=== PATIENT | female | born 1965 | race Two or more races ===

== ENCOUNTER 2017-08-12 13:50 | Emergency (ER) | payer MEDICAID, MEDICARE ==
[~2017-08-12] VITALS: Ht 170.2 cm; Wt 55.0 kg
[~2017-08-12 13:50] MED LIST: ATOR80TA PO; BENA20TA3 PO; BUPR-102 PO; CLOP75TA33 PO; LEVO75TA PO; METF500T4 PO; RISP1TAB26 PO; RISP2TAB22 PO
[2017-08-12 13:53] VITALS: BP 111/63
== END 2017-08-12 14:13 | disposition left against medical advice (07) ==
LOC: ER 13:50
DX: Z04.8 Encounter for examination and observation for other specified reasons (principal)
CPT/HCPCS: 99283

== ENCOUNTER 2018-11-05 08:55 | Emergency (ER) | payer MEDICARE, MEDICAID ==
[~2018-11-05] VITALS: Ht 175.3 cm; Wt 55.0 kg
[~2018-11-05 08:55] MED LIST changes: +BENA20TA10 PO; -BENA20TA3 PO; +METF-414 PO; -METF500T4 PO
[2018-11-05 09:44] LABS: BASOPHILS % 0.5 % (0.0-2.0); EOSINOPHILS % 1.8 % (0.0-5.0); HEMATOCRIT. 35.5 % (36.0-48.0); HEMOGLOBIN. 11.9 g/dL (12.0-16.0); LYMPHOCYTES % 30.6 % (20.0-50.0); MEAN CORPUSCULAR HEMOGLOBIN 30.4 pg (28.0-32.0); MEAN CORPUSCULAR VOLUME 90.3 fL (81.0-99.0); MEAN PLATELET VOLUME 7.7 fl (7.4-10.4); MONOCYTES % 6.2 % (2.0-8.0); NEUTROPHILS % 60.9 % (40.0-76.0); PLATELET 231 x1000/uL (130-400); RED BLOOD CELL COUNT 3.93 mill/uL (4.2-5.4); RED CELL DISTRIBUTION WIDTH 13.3 % (11.6-14.6)
[2018-11-05 09:50] LABS: CHLORIDE 106 mEq/L (98-107)
[2018-11-05 10:01] LABS: ETHANOL BLOOD < 10 mg/dL
[2018-11-05 10:02] LABS: CARBAMAZEPINE < 0.5 ug/mL (4-12)
[2018-11-05 10:05] LABS: PHENOBARBITAL < 2.1 ug/mL (15.0-40.0)
[2018-11-05 10:39] LABS: CLARITY URINE CLEAR (CLEAR); COLOR URINE YELLOW (YELLOW); KETONES URINE NEGATIVE (NEGATIVE); LEUKOCYTE ESTERASE URINE NEGATIVE (NEGATIVE); NITRITE URINE NEGATIVE (NEGATIVE); OCCULT BLOOD URINE NEGATIVE (NEGATIVE); PH URINE 7.5 (4.5-8.0); PROTEIN URINE NEGATIVE (NEGATIVE); SPECIFIC GRAVITY URINE 1.015 (1.005-1.030); UROBILINOGEN URINE 0.2 E.U./dL (0.2-1.0)
[2018-11-05 11:29] LABS: *AMPHETAMINES SCREEN URINE NEGATIVE (NEGATIVE); *BARBITURATES SCREEN URINE NEGATIVE (NEGATIVE); *BENZODIAZEPINES SCREEN URINE NEGATIVE (NEGATIVE); *COCAINE SCREEN URINE NEGATIVE (NEGATIVE); CANNABINOID URINE SCREEN NEGATIVE (NEGATIVE); METHADONE URINE SCREEN NEGATIVE (NEGATIVE); OPIATES URINE SCREEN NEGATIVE (NEGATIVE); PHENCYCLIDINE URINE SCREEN NEGATIVE (NEGATIVE)
[2018-11-05 12:30] VITALS: BP 138/68
== END 2018-11-05 13:46 | disposition home or self-care (01) ==
LOC: ER 08:55
DX: R56.9 Unspecified convulsions (principal); E11.9 Type 2 diabetes mellitus without complications; I10 Essential (primary) hypertension; Z86.73 Personal history of transient ischemic attack (TIA), and cerebral infarction without residual deficits; Z79.899 Other long term (current) drug therapy
CPT/HCPCS: 36415; 70450; 80053; 80156; 80165; 80184; 80185; 80305; 80320; 81003; 82962; 85025; 99284; P9612; G0480

== ENCOUNTER 2019-04-12 13:14 | Inpatient (IN) | payer MEDICARE, MEDICAID ==
[~2019-04-12] VITALS: Ht 167.6 cm; Wt 59.0 kg
[2019-04-12] MEDS ORDERED: SODIUM CHLORIDE 0.9% 1,000 ML IV ONE (14:03)
[2019-04-12 14:47] LABS: BASOPHILS % 0.2 % (0.0-2.0); EOSINOPHILS % 0.1 % (0.0-5.0); HEMATOCRIT. 33.2 % (36.0-48.0); HEMOGLOBIN. 11.4 g/dL (12.0-16.0); MEAN CORPUSCULAR HEMOGLOBIN 31.2 pg (28.0-32.0); MEAN CORPUSCULAR VOLUME 91.1 fL (81.0-99.0); MEAN PLATELET VOLUME 7.5 fl (7.4-10.4); MONOCYTES % 8.1 % (2.0-8.0); NEUTROPHILS % 78.6 % (40.0-76.0); PLATELET 262 x1000/uL (130-400); RED BLOOD CELL COUNT 3.64 mill/uL (4.2-5.4)
[2019-04-12 14:54] LABS: CHLORIDE 107 mEq/L (98-107)
[2019-04-12 15:00] LABS: ETHANOL BLOOD < 10 mg/dL
[2019-04-12 19:03] LABS: CLARITY URINE CLEAR (CLEAR); COLOR URINE YELLOW (YELLOW); KETONES URINE NEGATIVE (NEGATIVE); LEUKOCYTE ESTERASE URINE 2+ (NEGATIVE); NITRITE URINE NEGATIVE (NEGATIVE); OCCULT BLOOD URINE 2+ (NEGATIVE); PROTEIN URINE NEGATIVE (NEGATIVE); SPECIFIC GRAVITY URINE 1.019 (1.005-1.030)
[2019-04-12 19:15] LABS: *AMPHETAMINES SCREEN URINE NEGATIVE (NEGATIVE); *BARBITURATES SCREEN URINE NEGATIVE (NEGATIVE); *BENZODIAZEPINES SCREEN URINE NEGATIVE (NEGATIVE); *COCAINE SCREEN URINE NEGATIVE (NEGATIVE); METHADONE URINE SCREEN NEGATIVE (NEGATIVE); OPIATES URINE SCREEN NEGATIVE (NEGATIVE)
[2019-04-12 19:16] LABS: CANNABINOID URINE SCREEN NEGATIVE (NEGATIVE); PHENCYCLIDINE URINE SCREEN NEGATIVE (NEGATIVE)
[2019-04-12] MEDS ORDERED: NA PHOS,M-B/NA PHOS,DI-BA ENEMA 118ML PR PRN (20:00)
[2019-04-12] MEDS ORDERED: ACETAMINOPHEN 325MG TABLET PO PRN (20:00)
[2019-04-12] MEDS ORDERED: GUAIFENESIN 200MG/10ML SUGAR FREE UDC PO PRN (20:00)
[2019-04-12] MEDS ORDERED: IPRATROPIUM/ALBUTEROL 0.5-3(2.5)MG/3ML NEB HHN PRN (20:00)
[2019-04-12] MEDS ORDERED: ONDANSETRON HCL 4MG/2ML INJ IV PRN (20:00)
[2019-04-12] MEDS ORDERED: MAGNESIUM/ALUMINUM HYDROXIDE/SIMETHICONE 30ML UDC PO PRN (20:00)
[2019-04-12] MEDS ORDERED: CLONIDINE 0.1MG TABLET PO PRN (20:00)
[2019-04-12] MEDS ORDERED: DOCUSATE SODIUM 100MG CAPSULE PO PRN (20:00)
[2019-04-12] MEDS ORDERED: HYDROCODONE/ACETAMINOPHEN 10/325MG TABLET PO PRN (20:00)
[2019-04-12] MEDS ORDERED: MORPHINE SULFATE 2 MG/ML CPJ (NOT FOR IM USE) IV PRN (20:00)
[2019-04-12] MEDS ORDERED: DEXTROSE 50% WATER 50ML SYRINGE IV PRN (20:15)
[2019-04-12 23:00] VITALS: BP 144/73
[2019-04-13 01:30] LABS: CREATINE KINASE MB FRACTION 4.9 ng/mL (0.5-3.6)
[2019-04-13] MEDS ORDERED: CEFTRIAXONE 1 G PREMIX 50 ML IV SCH (02:00)
[2019-04-13] MEDS: DEXT 5%/0.45% NACL 1000ML 1,000 ML IV SCH ×2 (07:04→18:46)
[2019-04-13] MEDS: SODIUM CHLORIDE 0.9% INJ 3ML FLUSH IVF SCH ×3 (07:20→22:21)
[2019-04-13] MEDS: BLOOD SUGAR DIAGNOSTIC STRIP TEST SCH ×4 (07:20→21:00)
[2019-04-13] MEDS: INSULIN LISPRO 100 UNITS/ML SUBCUT SCH ×4 (07:50→22:20)
[2019-04-13 07:56] LABS: BASOPHILS % 0.3 % (0.0-2.0); EOSINOPHILS % 1.4 % (0.0-5.0); HEMATOCRIT. 34.6 % (36.0-48.0); HEMOGLOBIN. 11.7 g/dL (12.0-16.0); LYMPHOCYTES % 21.8 % (20.0-50.0); MEAN CORPUSCULAR HEMOGLOBIN 30.7 pg (28.0-32.0); MEAN CORPUSCULAR VOLUME 90.7 fL (81.0-99.0); MEAN PLATELET VOLUME 7.9 fl (7.4-10.4); MONOCYTES % 7.9 % (2.0-8.0); NEUTROPHILS % 68.6 % (40.0-76.0); PLATELET 268 x1000/uL (130-400); RED BLOOD CELL COUNT 3.82 mill/uL (4.2-5.4); RED CELL DISTRIBUTION WIDTH 13.4 % (11.6-14.6)
[2019-04-13 08:00] VITALS: BP 113/68
[2019-04-13 09:13] LABS: CHLORIDE 107 mEq/L (98-107)
[2019-04-13 09:21] LABS: LDL CHOLESTEROL 71 mg/dL (5-100)
[2019-04-13 09:27] LABS: CREATINE KINASE 879 IU/L (26-192); HDL CHOLESTEROL 39 mg/dL (40-59)
[2019-04-13 09:29] LABS: CREATINE KINASE MB FRACTION 4.2 ng/mL (0.5-3.6)
[2019-04-13 09:37] LABS: T4 FREE 1.12 ng/dL (0.76-1.46)
[2019-04-13] MEDS: ENOXAPARIN 40MG/0.4ML SYR SUBCUT SCH (09:53)
[2019-04-13 12:00] VITALS: BP 130/59
[2019-04-13 16:00] VITALS: BP 137/70
[2019-04-13 16:48] LABS: T4 FREE 1.12 ng/dL (0.76-1.46)
[2019-04-13 17:06] LABS: FOLIC ACID (FOLATE) SERUM >20 ng/mL ng/mL (>5.38)
[2019-04-13 17:14] LABS: VITAMIN B12 SERUM 290 pg/mL (211-911)
[2019-04-13] MEDS: CLOPIDOGREL 75MG TABLET PO SCH (18:50)
[2019-04-13 20:00] VITALS: BP 144/87
[2019-04-13] MEDS: CARBAMAZEPINE 200MG TABLET PO SCH (22:19)
[2019-04-14] VITALS: BP 128/81
[2019-04-14 04:00] VITALS: BP 113/80
[2019-04-14] MEDS: DEXT 5%/0.45% NACL 1000ML 1,000 ML IV SCH ×2 (06:16→20:56)
[2019-04-14] MEDS: SODIUM CHLORIDE 0.9% INJ 3ML FLUSH IVF SCH ×3 (06:17→21:04)
[2019-04-14] MEDS: BLOOD SUGAR DIAGNOSTIC STRIP TEST SCH ×4 (06:26→20:55)
[2019-04-14 07:20] LABS: BASOPHILS % 0.3 % (0.0-2.0); EOSINOPHILS % 1.4 % (0.0-5.0); HEMATOCRIT. 34.6 % (36.0-48.0); HEMOGLOBIN. 11.4 g/dL (12.0-16.0); LYMPHOCYTES % 29.2 % (20.0-50.0); MEAN CORPUSCULAR HEMOGLOBIN 30.3 pg (28.0-32.0); MEAN CORPUSCULAR VOLUME 91.6 fL (81.0-99.0); MEAN PLATELET VOLUME 7.9 fl (7.4-10.4); MONOCYTES % 8.6 % (2.0-8.0); NEUTROPHILS % 60.5 % (40.0-76.0); PLATELET 270 x1000/uL (130-400); RED BLOOD CELL COUNT 3.77 mill/uL (4.2-5.4); RED CELL DISTRIBUTION WIDTH 13.1 % (11.6-14.6)
[2019-04-14 07:40] LABS: CHLORIDE 107 mEq/L (98-107)
[2019-04-14] MEDS: INSULIN LISPRO 100 UNITS/ML SUBCUT SCH ×4 (07:50→20:55)
[2019-04-14 08:00] VITALS: BP 131/86
[2019-04-14] MEDS: CARBAMAZEPINE 200MG TABLET PO SCH ×2 (08:18→20:54)
[2019-04-14] MEDS: CLOPIDOGREL 75MG TABLET PO SCH (08:18)
[2019-04-14] MEDS: ENOXAPARIN 40MG/0.4ML SYR SUBCUT SCH (08:20)
[2019-04-14] MEDS: LORAZEPAM 2MG/ML CPJ IV PRN (08:22)
[2019-04-14] MEDS ORDERED: POTASSIUM CHLORIDE 20MEQ/PACKET PO SCH (09:15)
[2019-04-14 12:00] VITALS: BP 106/52
[2019-04-14 16:00] VITALS: BP 124/75
[2019-04-14 20:00] VITALS: BP 134/77
[2019-04-14] MEDS: DIPHENHYDRAMINE 50MG/ML VIAL IV PRN (20:55)
[2019-04-15] VITALS: BP 130/76
[2019-04-15 04:00] VITALS: BP 126/78
[2019-04-15] MEDS: SODIUM CHLORIDE 0.9% INJ 3ML FLUSH IVF SCH ×3 (05:27→21:27)
[2019-04-15] MEDS: LORAZEPAM 2MG/ML CPJ IV PRN ×2 (06:10→18:20)
[2019-04-15] MEDS: DEXT 5%/0.45% NACL 1000ML 1,000 ML IV SCH ×2 (06:18→18:21)
[2019-04-15] MEDS: BLOOD SUGAR DIAGNOSTIC STRIP TEST SCH ×4 (06:45→21:27)
[2019-04-15 07:11] LABS: BASOPHILS % 0.5 % (0.0-2.0); EOSINOPHILS % 1.9 % (0.0-5.0); HEMATOCRIT. 36.5 % (36.0-48.0); HEMOGLOBIN. 12.2 g/dL (12.0-16.0); LYMPHOCYTES % 30.6 % (20.0-50.0); MEAN CORPUSCULAR HEMOGLOBIN 30.9 pg (28.0-32.0); MEAN CORPUSCULAR VOLUME 92.6 fL (81.0-99.0); MEAN PLATELET VOLUME 7.6 fl (7.4-10.4); MONOCYTES % 7.7 % (2.0-8.0); NEUTROPHILS % 59.3 % (40.0-76.0); PLATELET 263 x1000/uL (130-400); RED BLOOD CELL COUNT 3.94 mill/uL (4.2-5.4)
[2019-04-15 07:31] LABS: CHLORIDE 110 mEq/L (98-107)
[2019-04-15] MEDS: INSULIN LISPRO 100 UNITS/ML SUBCUT SCH ×4 (07:40→21:00)
[2019-04-15 08:00] VITALS: BP 98/57
[2019-04-15] MEDS: CLOPIDOGREL 75MG TABLET PO SCH (09:42)
[2019-04-15] MEDS: ENOXAPARIN 40MG/0.4ML SYR SUBCUT SCH (09:42)
[2019-04-15] MEDS: CARBAMAZEPINE 200MG TABLET PO SCH ×2 (09:42→21:27)
[2019-04-15 12:00] VITALS: BP 120/80
[2019-04-15] MEDS: ASPIRIN 81MG EC TABLET PO SCH (15:58)
[2019-04-15 16:00] VITALS: BP 128/92
[2019-04-15 20:00] VITALS: BP 148/98
[2019-04-15] MEDS: DIPHENHYDRAMINE 50MG/ML VIAL IV PRN (21:28)
[2019-04-16] VITALS: BP 124/82
[2019-04-16 04:00] VITALS: BP 143/94
[2019-04-16] MEDS: LORAZEPAM 2MG/ML CPJ IV PRN (05:30)
[2019-04-16] MEDS: DEXT 5%/0.45% NACL 1000ML 1,000 ML IV SCH (05:31)
[2019-04-16] MEDS: SODIUM CHLORIDE 0.9% INJ 3ML FLUSH IVF SCH ×2 (05:31→14:07)
[2019-04-16] MEDS: BLOOD SUGAR DIAGNOSTIC STRIP TEST SCH ×3 (06:53→16:56)
[2019-04-16] MEDS: INSULIN LISPRO 100 UNITS/ML SUBCUT SCH ×3 (07:39→16:56)
[2019-04-16 08:00] VITALS: BP 123/65
[2019-04-16 08:03] LABS: BASOPHILS % 0.3 % (0.0-2.0); EOSINOPHILS % 2.1 % (0.0-5.0); HEMATOCRIT. 38.9 % (36.0-48.0); HEMOGLOBIN. 12.7 g/dL (12.0-16.0); LYMPHOCYTES % 27.1 % (20.0-50.0); MEAN CORPUSCULAR HEMOGLOBIN 30.8 pg (28.0-32.0); MEAN CORPUSCULAR VOLUME 94.2 fL (81.0-99.0); MEAN PLATELET VOLUME 7.6 fl (7.4-10.4); MONOCYTES % 8.4 % (2.0-8.0); NEUTROPHILS % 62.1 % (40.0-76.0); PLATELET 266 x1000/uL (130-400); RED BLOOD CELL COUNT 4.14 mill/uL (4.2-5.4); RED CELL DISTRIBUTION WIDTH 13.2 % (11.6-14.6)
[2019-04-16 08:11] LABS: CHLORIDE 105 mEq/L (98-107)
[2019-04-16] MEDS: CARBAMAZEPINE 200MG TABLET PO SCH (10:00)
[2019-04-16] MEDS: CLOPIDOGREL 75MG TABLET PO SCH (10:01)
[2019-04-16] MEDS: ASPIRIN 81MG EC TABLET PO SCH (10:01)
[2019-04-16] MEDS: ENOXAPARIN 40MG/0.4ML SYR SUBCUT SCH (10:01)
[2019-04-16 12:00] VITALS: BP 109/91
[2019-04-16 16:00] VITALS: BP 115/66
[2019-04-16 16:13] VITALS: BP 109/91
== END 2019-04-16 16:50 | disposition home health service (06) | DRG 689 ==
LOC: ER 13:14 → 6WST 18:34 → EDBEDREQ 18:43 → ENRESERV 21:06
PROVIDERS: ADMIT Internal Medicine; ATTEND Internal Medicine
PROC: 4A10X4Z Monitoring of Central Nervous Electrical Activity, External Approach (ICD-10-PCS; principal; 2019-04-16)
DX: N39.0 Urinary tract infection, site not specified (principal); G92 Toxic encephalopathy; M62.82 Rhabdomyolysis; E78.00 Pure hypercholesterolemia, unspecified; F19.10 Other psychoactive substance abuse, uncomplicated; R00.1 Bradycardia, unspecified; E11.9 Type 2 diabetes mellitus without complications; F03.90 Unspecified dementia, unspecified severity, without behavioral disturbance, psychotic disturbance, mood disturbance, and anxiety; I08.2 Rheumatic disorders of both aortic and tricuspid valves; I10 Essential (primary) hypertension; E86.0 Dehydration; E87.6 Hypokalemia; E03.9 Hypothyroidism, unspecified; G40.909 Epilepsy, unspecified, not intractable, without status epilepticus; Z79.02 Long term (current) use of antithrombotics/antiplatelets; Z79.4 Long term (current) use of insulin; Z86.73 Personal history of transient ischemic attack (TIA), and cerebral infarction without residual deficits; Z91.19 Patient's noncompliance with other medical treatment and regimen; Z79.84 Long term (current) use of oral hypoglycemic drugs; Z79.899 Other long term (current) drug therapy
CPT/HCPCS: 36415; 70551; 71045; 80048; 80061; 80305; 80320; 81003; 82140; 82550; 82553; 82607; 82746; 82962; 83036; 84439; 84443; 84481; 84484; 93005; 93306; 99285; A6261; C1893; J0696; J1200; J1650; J1815; J2060; J7030; G0480

== ENCOUNTER 2019-11-20 09:28 | Emergency (ER) | payer MEDICARE, MEDICAID ==
[~2019-11-20] VITALS: Ht 172.7 cm; Wt 64.0 kg
[2019-11-20 10:20] LABS: BASOPHILS % 0.5 % (0.0-2.0); EOSINOPHILS % 0.5 % (0.0-5.0); HEMATOCRIT. 36.6 % (36.0-48.0); HEMOGLOBIN. 12.4 g/dL (12.0-16.0); LYMPHOCYTES % 20.5 % (20.0-50.0); MEAN CORPUSCULAR HEMOGLOBIN 30.9 pg (28.0-32.0); MEAN PLATELET VOLUME 7.4 fl (7.4-10.4); MONOCYTES % 6.7 % (2.0-8.0); NEUTROPHILS % 71.8 % (40.0-76.0); PLATELET 557 x1000/uL (130-400); RED BLOOD CELL COUNT 4.03 mill/uL (4.2-5.4)
[2019-11-20 10:28] LABS: CHLORIDE 106 mEq/L (98-107)
[2019-11-20 10:32] LABS: ETHANOL BLOOD < 10 mg/dL
[2019-11-20 10:39] LABS: CARBAMAZEPINE < 0.5 ug/mL (4-12); PHENOBARBITAL < 2.1 ug/mL (15.0-40.0); VALPROIC ACID < 3.0 ug/mL (50-100)
[2019-11-20 10:46] LABS: CLARITY URINE CLEAR (CLEAR); COLOR URINE YELLOW (YELLOW); KETONES URINE NEGATIVE (NEGATIVE); LEUKOCYTE ESTERASE URINE 2+ (NEGATIVE); NITRITE URINE POSITIVE (NEGATIVE); OCCULT BLOOD URINE NEGATIVE (NEGATIVE); PROTEIN URINE NEGATIVE (NEGATIVE); SPECIFIC GRAVITY URINE 1.015 (1.005-1.030); UROBILINOGEN URINE 0.2 E.U./dL (0.2-1.0)
[2019-11-20] MEDS ORDERED: CEFTRIAXONE 1 G PREMIX 50 ML IV ONE (11:00)
[2019-11-20 11:17] LABS: *AMPHETAMINES SCREEN URINE NEGATIVE (NEGATIVE); *BARBITURATES SCREEN URINE NEGATIVE (NEGATIVE); *BENZODIAZEPINES SCREEN URINE NEGATIVE (NEGATIVE); *COCAINE SCREEN URINE NEGATIVE (NEGATIVE); METHADONE URINE SCREEN NEGATIVE (NEGATIVE); OPIATES URINE SCREEN NEGATIVE (NEGATIVE); PHENCYCLIDINE URINE SCREEN NEGATIVE (NEGATIVE)
[2019-11-20 11:18] LABS: CANNABINOID URINE SCREEN NEGATIVE (NEGATIVE)
[2019-11-20 15:21] VITALS: BP 119/64
== END 2019-11-20 15:23 | disposition home or self-care (01) ==
LOC: ER 09:39
DX: G40.909 Epilepsy, unspecified, not intractable, without status epilepticus (principal); N39.0 Urinary tract infection, site not specified; E11.9 Type 2 diabetes mellitus without complications; I10 Essential (primary) hypertension; F03.90 Unspecified dementia, unspecified severity, without behavioral disturbance, psychotic disturbance, mood disturbance, and anxiety; Z86.73 Personal history of transient ischemic attack (TIA), and cerebral infarction without residual deficits
CPT/HCPCS: 36415; 80053; 80156; 80165; 80184; 80185; 80305; 80320; 81003; 82962; 85025; 87077; 87086; 87186; 96365; 99285; J0696; 99284; G0480

== ENCOUNTER 2019-12-14 09:19 | Emergency (ER) | payer MEDICARE, MEDICAID ==
[~2019-12-14] VITALS: Ht 162.6 cm; Wt 81.0 kg
[2019-12-14] MEDS ORDERED: LEVETIRACETAM 500MG PREMIX 100 ML IV ONE (09:45)
[2019-12-14 10:00] LABS: BASOPHILS % 0.3 % (0.0-2.0); EOSINOPHILS % 1.9 % (0.0-5.0); HEMATOCRIT. 36.2 % (36.0-48.0); LYMPHOCYTES % 29.5 % (20.0-50.0); MEAN CORPUSCULAR HEMOGLOBIN 30.4 pg (28.0-32.0); MEAN CORPUSCULAR VOLUME 91.5 fL (81.0-99.0); MEAN PLATELET VOLUME 8.1 fl (7.4-10.4); MONOCYTES % 7.1 % (2.0-8.0); NEUTROPHILS % 61.2 % (40.0-76.0); PLATELET 266 x1000/uL (130-400); RED BLOOD CELL COUNT 3.96 mill/uL (4.2-5.4); RED CELL DISTRIBUTION WIDTH 13.6 % (11.6-14.6)
[2019-12-14 10:20] LABS: CHLORIDE 109 mEq/L (98-107)
[2019-12-14 11:28] LABS: CLARITY URINE CLEAR (CLEAR); COLOR URINE YELLOW (YELLOW); KETONES URINE NEGATIVE (NEGATIVE); LEUKOCYTE ESTERASE URINE 1+ (NEGATIVE); NITRITE URINE NEGATIVE (NEGATIVE); OCCULT BLOOD URINE NEGATIVE (NEGATIVE); PH URINE 6.5 (4.5-8.0); PROTEIN URINE 1+ (NEGATIVE)
[2019-12-14 15:00] VITALS: BP 118/67
== END 2019-12-14 15:27 | disposition home or self-care (01) ==
LOC: ER 09:28
DX: G40.909 Epilepsy, unspecified, not intractable, without status epilepticus (principal); F03.90 Unspecified dementia, unspecified severity, without behavioral disturbance, psychotic disturbance, mood disturbance, and anxiety; E11.9 Type 2 diabetes mellitus without complications; I10 Essential (primary) hypertension; Z86.73 Personal history of transient ischemic attack (TIA), and cerebral infarction without residual deficits; Z79.84 Long term (current) use of oral hypoglycemic drugs
CPT/HCPCS: 36415; 80048; 81003; 82962; 85025; 96374; 99285; J1953